=== PATIENT | female | born 1955 ===

== ENCOUNTER 2018-04-15 08:45 | Outpatient (CLI) | payer OTHER | END 2018-04-15 08:48 | disposition home or self-care (01) | LOC: SONOGRAMA 08:45 → MAMO-SONO 09:15 | DX: E55.9 Vitamin D deficiency, unspecified (principal); N60.12 Diffuse cystic mastopathy of left breast; N60.11 Diffuse cystic mastopathy of right breast; R92.0 Mammographic microcalcification found on diagnostic imaging of breast; R68.82 Decreased libido; E66.3 Overweight; D25.1 Intramural leiomyoma of uterus; M89.8X8 Other specified disorders of bone, other site ==